=== PATIENT | female | born 1970 | race Caucasian/White ===

== ENCOUNTER → 2017-05-08 | Outpatient (CLI) | payer OTHER ==
[~2017-05-08] MED LIST: BACTRIM DS 8001 TA1 PO; CIPRO500 MG PO; DITROPAN5 MG PO; FLOMAX0.4 MG PO; HYDROCODONE BIT1 T11 PO; MEDROL DOSEPAK4 MG PO; SYNTHROID0.125 MG PO; TERAZOSIN HCL1 M1; ZOFRAN ODT4 MG PO
== END | disposition home or self-care (01) ==
LOC: US 13:00
DX: M54.9 Dorsalgia, unspecified (principal); Z87.442 Personal history of urinary calculi

== ENCOUNTER 2019-08-01 22:32 | Emergency (ER) | payer OTHER ==
[~2019-08-01] VITALS: Ht 160 cm; Wt 88.5 kg
[2019-08-01 23:08] LABS: BASO # 0.1 10*3/uL (0.0-0.1); BASO % 0.5 % (0.0-1.0); EOS # 0.1 10*3/uL (0.0-0.4); EOS % 0.6 % (1.0-4.0); HEMATOCRIT 37.4 % (37.0-47.0); LYMPH # 1.5 10*3/uL (1.3-4.4); LYMPH % 11.7 % (27.0-41.0); MEAN CELL VOLUME 75.7 fl (81.0-99.0); MEAN CORPUSCULAR HGB 23.5 pg (27.0-31.0); MEAN PLATELET VOLUME 10.1 fl (9.6-12.3); MONO # 0.6 10*3/uL (0.1-1.0); NEUT # 10.2 10*3/uL (2.3-7.9); NEUT % 81.6 % (47.0-73.0); PLATELET COUNT AUTOMATED 266 10*3/uL (130-400); RED BLOOD COUNT 4.94 10*6/uL (4.10-5.10); RED CELL DISTRI WIDTH 15.9 % (0-14.5); WHITE BLOOD COUNT 12.5 10*3/uL (4.8-10.8)
[2019-08-01 23:19] LABS: BILIRUBIN NEGATIVE (NEGATIVE); BLOOD TRACE-INTACT (NEGATIVE); CLARITY CLEAR (CLEAR); COLOR YELLOW (YELLOW); GLUCOSE NEGATIVE (NEGATIVE); KETONE NEGATIVE (NEGATIVE); LEUKO ESTERASE NEGATIVE (NEGATIVE); NITRITE NEGATIVE (NEGATIVE); SPECIFIC GRAVITY 1.025 (1.005-1.030); UROBILINOGEN 0.2 E.U./dl (0.2-1.0)
[2019-08-01 23:19] LABS: BUN 10 mg/dl (7-24); CHLORIDE 107 mmol/L (98-107); CREATININE 1.02 mg/dL (0.55-1.02); SODIUM 137 mmol/L (136-145)
[2019-08-01 23:53] LABS: EPITHELIAL CELLS 16-20
[2019-08-01 23:54] LABS: WBC 0-2 wbc/hpf (0-5)
[2019-08-02] MEDS ORDERED: NORCO 5-325 TA1 EACH PO (00:12)
[2019-08-02] MEDS ORDERED: ZOFRAN4 MG PO (00:40)
[2019-08-02 01:20] VITALS: BP 163/70
== END 2019-08-02 01:23 | disposition home or self-care (01) ==
LOC: ED 22:32
PROVIDERS: Emergency Medicine Emergency Medical Services
DX: N20.1 Calculus of ureter (principal); Z88.2 Allergy status to sulfonamides; Z88.8 Allergy status to other drugs, medicaments and biological substances; Z79.899 Other long term (current) drug therapy

== ENCOUNTER → 2019-08-13 | Outpatient (CLI) | payer OTHER ==
[~2019-08-13] MED LIST changes: +NORCO 5-325 TA1 EACH PO; +ZOFRAN4 MG PO
[2019-08-13 14:54] LABS: BASO % 0.4 % (0.0-1.0); EOS # 0.2 10*3/uL (0.0-0.4); EOS % 2.3 % (1.0-4.0); HEMATOCRIT 38.3 % (37.0-47.0); LYMPH # 2.7 10*3/uL (1.3-4.4); MEAN CELL VOLUME 75.5 fl (81.0-99.0); MEAN CORPUSCULAR HGB 23.7 pg (27.0-31.0); MEAN CORPUSCULAR HGB CONC 31.3 g/dl (33.0-37.0); MEAN PLATELET VOLUME 9.8 fl (9.6-12.3); MONO # 0.5 10*3/uL (0.1-1.0); MONO % 5.7 % (3.0-9.0); NEUT # 5.5 10*3/uL (2.3-7.9); PLATELET COUNT AUTOMATED 233 10*3/uL (130-400); RED BLOOD COUNT 5.07 10*6/uL (4.10-5.10); RED CELL DISTRI WIDTH 15.7 % (0-14.5)
[2019-08-13 15:30] LABS: ALBUMIN 3.5 gm/dl (3.1-4.5); ALKALINE PHOSPHATASE 77 U/L (45-117); BUN 12 mg/dl (7-24); CHLORIDE 107 mmol/L (98-107); CREATININE 0.73 mg/dL (0.55-1.02); POTASSIUM 3.6 mmol/L (3.5-5.1); SGOT/AST 22 IU/L (3-35); SGPT/ALT 25 U/L (12-78); SODIUM 139 mmol/L (136-145); T3 UPTAKE 35 % (31-39); THYROXINE (T4) TOTAL 8.1 ug/dl (4.8-13.9); TOTAL PROTEIN 7.3 gm/dL (6.4-8.2)
[2019-08-13 16:56] LABS: BILIRUBIN NEGATIVE (NEGATIVE); CLARITY SL CLOUDY (CLEAR); COLOR YELLOW (YELLOW); GLUCOSE NEGATIVE (NEGATIVE)
[2019-08-13 16:57] LABS: BACTERIA 1+; BLOOD NEGATIVE (NEGATIVE); EPITHELIAL CELLS TNTC; KETONE NEGATIVE (NEGATIVE); LEUKO ESTERASE NEGATIVE (NEGATIVE); NITRITE NEGATIVE (NEGATIVE); RBC 0-2 rbc/hpf (0-2); SPECIFIC GRAVITY 1.015 (1.005-1.030); UROBILINOGEN 0.2 E.U./dl (0.2-1.0)
== END | disposition home or self-care (01) ==
LOC: US 13:59
PROVIDERS: Nurse Practitioner Family
DX: N28.1 Cyst of kidney, acquired (principal)

== ENCOUNTER → 2019-08-15 | Outpatient (CLI) | payer OTHER | END | disposition home or self-care (01) | LOC: LAB 13:55 | PROVIDERS: Urology | DX: N20.0 Calculus of kidney (principal) ==

== ENCOUNTER 2020-04-07 22:01 | Emergency (ER) | payer OTHER ==
[~2020-04-07] VITALS: Ht 157.4 cm; Wt 94.0 kg
[2020-04-08 00:20] LABS: BASO % 0.5 % (0.0-1.0); EOS # 0.2 10*3/uL (0.0-0.4); EOS % 2.9 % (1.0-4.0); HEMATOCRIT 33.3 % (37.0-47.0); LYMPH % 25.1 % (27.0-41.0); MEAN CELL VOLUME 71.9 fl (81.0-99.0); MEAN CORPUSCULAR HGB 21.6 pg (27.0-31.0); MEAN PLATELET VOLUME 9.5 fl (9.6-12.3); MONO # 0.6 10*3/uL (0.1-1.0); NEUT # 5.1 10*3/uL (2.3-7.9); NEUT % 64.1 % (47.0-73.0); PLATELET COUNT AUTOMATED 248 10*3/uL (130-400); RED BLOOD COUNT 4.63 10*6/uL (4.10-5.10); RED CELL DISTRI WIDTH 16.4 % (0-14.5)
[2020-04-08 00:37] LABS: ALBUMIN 3.2 gm/dl (3.1-4.5); ALKALINE PHOSPHATASE 73 U/L (45-117); BUN 12 mg/dl (7-24); CHLORIDE 107 mmol/L (98-107); CREATININE 0.59 mg/dL (0.55-1.02); FREE T4 0.95 ng/dl (0.76-1.46); POTASSIUM 3.7 mmol/L (3.5-5.1); SGOT/AST 7 IU/L (3-35); SGPT/ALT 16 U/L (12-78); SODIUM 138 mmol/L (136-145); TOTAL PROTEIN 6.7 gm/dL (6.4-8.2)
[2020-04-08 00:38] LABS: TROPONIN I < 0.015 ng/ml (<0.045)
[2020-04-08 00:41] LABS: THYROID STIM HORMONE (HS) 3.17 uIU/ml (0.358-4.75)
[2020-04-08 01:46] VITALS: BP 133/61
[2020-04-08] MEDS ORDERED: ZESTRIL10 MG PO (03:51)
== END 2020-04-08 04:11 | disposition home or self-care (01) ==
LOC: ED 22:01
PROVIDERS: Physician Assistant
DX: F41.9 Anxiety disorder, unspecified (principal); I10 Essential (primary) hypertension; R07.9 Chest pain, unspecified

== ENCOUNTER 2023-05-01 16:04 | Emergency (ER) | payer OTHER ==
[~2023-05-01] VITALS: Ht 157.4 cm; Wt 86.2 kg
[~2023-05-01 16:04] MED LIST changes: +ZESTRIL10 MG PO
[2023-05-01 16:11] VITALS: BP 153/65
[2023-05-01] MEDS ORDERED: Ondansetron Hydrochloride 4 MG/2 ML VIAL IV ONE (16:20)
[2023-05-01] MEDS ORDERED: Ketorolac Tromethamine 30 MG/ML VIAL IV ONE (16:20)
[2023-05-01] MEDS ORDERED: SODIUM CHLORIDE 0.9% 1,000 ML IV ONE (16:20)
[2023-05-01 16:54] LABS: BASO # 0.1 10*3/uL (0.0-0.1); BASO % 0.4 % (0.0-1.0); EOS % 0.1 % (1.0-4.0); HEMATOCRIT 45.3 % (37.0-47.0); LYMPH # 1.1 10*3/uL (1.3-4.4); MEAN CELL VOLUME 87.6 fl (81.0-99.0); MEAN CORPUSCULAR HGB 28.2 pg (27.0-31.0); MEAN CORPUSCULAR HGB CONC 32.2 g/dl (33.0-37.0); MEAN PLATELET VOLUME 11.2 fl (9.6-12.3); MONO # 0.4 10*3/uL (0.1-1.0); MONO % 2.9 % (3.0-9.0); NEUT # 12.3 10*3/uL (2.3-7.9); PLATELET COUNT AUTOMATED 203 10*3/uL (130-400); RED BLOOD COUNT 5.17 10*6/uL (4.10-5.10); RED CELL DISTRI WIDTH 12.8 % (0-14.5)
[2023-05-01 17:15] LABS: ALKALINE PHOSPHATASE 71 U/L (46-116); BUN 9 mg/dl (9-23); CHLORIDE 106 mmol/L (98-107); LIPASE 30 U/L (12-53); POTASSIUM 3.9 mmol/L (3.4-5.1); SGPT/ALT 12 U/L (5-49); TOTAL PROTEIN 7.6 gm/dL (6.0-8.0)
[2023-05-01 17:16] LABS: BETA-HCG, QUANT < 3.0 mIU/mL (3-10)
[2023-05-01 17:41] LABS: BILIRUBIN Negative (Negative); BLOOD 3+ (Negative); CLARITY Cloudy (Clear); COLOR Dark Yellow (Yellow); GLUCOSE Negative (Negative); KETONE 1+ (Negative); LEUKO ESTERASE Trace (Negative); NITRITE Negative (Negative); SPECIFIC GRAVITY 1.025 (1.001-1.030); UROBILINOGEN 0.2 E.U./dl (0.0-1.0)
[2023-05-01 17:49] LABS: BACTERIA 2+; RBC TNTC rbc/hpf (0-2)
[2023-05-01] MEDS ORDERED: PERCOCET 5-3251 EACH PO (18:15)
[2023-05-01] MEDS ORDERED: FLOMAX0.4 MG PO (18:15)
[2023-05-01] MEDS ORDERED: ONDANSETRON4 MG SL (18:15)
[2023-05-01] MEDS ORDERED: Motrin,Rufen800 MG PO (18:15)
== END 2023-05-01 18:21 | disposition home or self-care (01) ==
LOC: ED 16:04
PROVIDERS: Emergency Medicine
DX: N20.1 Calculus of ureter (principal); I10 Essential (primary) hypertension; R10.2 Pelvic and perineal pain; Z88.2 Allergy status to sulfonamides; Z88.8 Allergy status to other drugs, medicaments and biological substances; Z98.51 Tubal ligation status; Z98.890 Other specified postprocedural states

== ENCOUNTER → 2023-05-08 | Outpatient (CLI) | payer OTHER ==
[~2023-05-08] MED LIST changes: +Motrin,Rufen800 MG PO; +ONDANSETRON4 MG SL; +PERCOCET 5-3251 EACH PO
== END | disposition home or self-care (01) ==
LOC: LAB 13:09 → RAD 13:09
PROVIDERS: ATTEND Urology
DX: N20.0 Calculus of kidney (principal)

== ENCOUNTER → 2023-05-20 | Outpatient (CLI) | payer OTHER ==
[2023-05-20 15:04] LABS: BASO # 0.1 10*3/uL (0.0-0.1); BASO % 0.4 % (0.0-1.0); EOS # 0.1 10*3/uL (0.0-0.4); EOS % 0.8 % (1.0-4.0); HEMATOCRIT 43.8 % (37.0-47.0); LYMPH # 2.2 10*3/uL (1.3-4.4); LYMPH % 18.5 % (27.0-41.0); MEAN CELL VOLUME 85.9 fl (81.0-99.0); MEAN CORPUSCULAR HGB 27.8 pg (27.0-31.0); MEAN CORPUSCULAR HGB CONC 32.4 g/dl (33.0-37.0); MEAN PLATELET VOLUME 10.1 fl (9.6-12.3); MONO # 0.6 10*3/uL (0.1-1.0); MONO % 4.9 % (3.0-9.0); NEUT # 8.9 10*3/uL (2.3-7.9); PLATELET COUNT AUTOMATED 283 10*3/uL (130-400); WHITE BLOOD COUNT 11.9 10*3/uL (4.8-10.8)
[2023-05-20 15:21] LABS: BILIRUBIN Negative (Negative); BLOOD 1+ (Negative); CLARITY Cloudy (Clear); COLOR Yellow (Yellow); GLUCOSE Negative (Negative); KETONE Negative (Negative); LEUKO ESTERASE 3+ (Negative); NITRITE Negative (Negative); PH 5.5 (4.5-8.0); SPECIFIC GRAVITY 1.015 (1.001-1.030); UROBILINOGEN 0.2 E.U./dl (0.0-1.0)
[2023-05-20 15:46] LABS: ALKALINE PHOSPHATASE 72 U/L (46-116); BUN 7 mg/dl (9-23); CHLORIDE 106 mmol/L (98-107); POTASSIUM 3.6 mmol/L (3.4-5.1); SGPT/ALT 10 U/L (5-49); THYROXINE (T4) TOTAL 7.6 ug/dl (4.5-10.9); TOTAL PROTEIN 7.7 gm/dL (6.0-8.0)
[2023-05-20 15:49] LABS: BACTERIA 2+; WBC 51-100 wbc/hpf (0-5)
== END | disposition home or self-care (01) ==
LOC: LAB 14:36
PROVIDERS: Nurse Practitioner Primary Care; ATTEND Urology
DX: I10 Essential (primary) hypertension (principal); E55.9 Vitamin D deficiency, unspecified; R63.5 Abnormal weight gain; R73.9 Hyperglycemia, unspecified

== ENCOUNTER → 2023-05-22 | Outpatient (CLI) | payer OTHER ==
[2023-05-28 22:06] LABS: CALCIUM PHOSPHATE SATURATION 1.12 (0.50-2.00); CALCIUM, OXALATE SATURATION 8.54 (6.00-10.00); CALCIUM/CREATININE RATIO 164 (51-262); CREATININE/KG BODY WEIGHT 18.2 (8.7-20.3); CYSTINE,URINE,QUAL Neg (Negative); URIC ACID SATURATION 1.05 (<1.00); URINE CALCIUM 257 mg/24 hr (<200); URINE CITRATE 759 mg/24 hr (>550); URINE CREATININE 1567 mg/24 hr (Not Applic.); URINE MAGNESIUM 88 mg/24 hr (30-120); URINE OXALATE 43 mg/24 hr (20-40); URINE POTASSIUM 80 (20-100); URINE SODIUM 245 (50-150); URINE UREA NITROGEN 9.58 g/24 hr (6.00-14.00); URINE URIC ACID 904 mg/24 hr (<750); URINE VOLUME PRESERVED 1840 mL/24 hr (500-4000)
== END | disposition home or self-care (01) ==
LOC: LAB 02:23 → US 13:00 → LAB 13:00
PROVIDERS: ATTEND Urology
DX: N20.0 Calculus of kidney (principal); R31.9 Hematuria, unspecified; E83.50 Unspecified disorder of calcium metabolism; N32.89 Other specified disorders of bladder; Z96.0 Presence of urogenital implants